=== PATIENT | female | born 1995 | race Caucasian/White ===

== ENCOUNTER 2024-04-12 11:24 | Emergency (ER) | payer MEDICAID, SELFPAY ==
[2024-04-12 11:32] VITALS: BP 138/85; PULSE 95; RESP 16; TEMP 36.7; O2SAT 100
[2024-04-12 12:16] LABS: Basophils % 0.4 %; Eosinophils # 0.1 10^3/uL (0.0-0.8); Eosinophils % 0.8 %; Hematocrit 40.1 % (36-47); Lymphocytes # 2.3 10^3/uL (0.8-4.8); Lymphocytes % 22.3 %; Mean Corpuscular HGB Conc 32.9 g/dL (30-55); Mean Corpuscular Hemoglobin 28.4 pg (27-33); Mean Corpuscular Volume 86.4 fl (85-98); Mean Platelet Volume 11.5 fL (7.4-10.4); Monocytes # 0.8 10^3/uL (0.2-0.9); Monocytes % 7.7 %; Neutrophils # 7.09 10^3/uL (1.8-7.7); Neutrophils % 68.5 %; Nucleated Red Blood Cells % 0 %; Platelet Count 158 10^3/cmm (157-399); Red Blood Count 4.64 10^6/uL (3.85-5.65); Red Cell Distribution Width 13.1 % (12.1-15.1); White Blood Count 10.35 10^3/uL (3.29-11.43)
[2024-04-12 12:28] VITALS: BP 129/85; PULSE 97; O2SAT 100
--- NOTE | 2024-04-12 12:55 | ED_ITS ---
HPI - 2 General: Chief complaint: Vaginal Bleeding Stated complaint: 6 weeks preg, spotting and cramping Time Seen by Provider: 04/12/24 12:35 Source: patient Mode of arrival: ambulatory History of Present Illness: 28-year-old female presents emergency ro clinic vaginal bleeding and pelvic cramping that began this morning. She had a positive test at home went to the doctor's office and it confirmed and then began to have the bleeding and spotting and discomfort. She denies any dysuria urgency or frequency. States this is her first . MD Complaint: abdominal pain Onset (ago): day(s) Pain Consistency: intermittent Location: pelvis Quality: Cramping Radiation: pelvis Relieving factors: none Exacerbating factors: none Vaginal bleeding: light Associated symptoms: Reports vaginal bleeding; Deny abdominal pain, dyspareunia, dysuria, headache(s), malaise, nausea, rash, seizures, short of breath, syncope, vaginal discharge, visual changes, vomiting or weakness Related Data: : 1 Review of Systems 2 Const: Denies: fever(s), chills, fatigue or malaise Card: Denies: syncope Resp: Denies: dyspnea GI: Denies: abdominal pain, nausea or vomiting : Reports: vaginal bleeding; Denies: dysuria, vaginal discharge or dyspareunia Musc: Denies: neck pain or back pain Skin/Breast: Denies: rash Neuro: Denies: headache(s) PFSH ED 2 PFSH: Medical History 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, 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 GERD (gastroesophageal reflux disease) Meningitis Surgical History History of heart artery stent Social History Smoking and tobacco/nicotine status: never used tobacco/nicotine Female Reproductive History: : 1 Physical Exam 2 Const: COMMON NORMALS: no acute distress GENERAL APPEARANCE: cooperative and comfortable ORIENTATION/CONSCIOUSNESS: Yes awake, Yes oriented to person, Yes oriented to place and Yes oriented to time HENMT: COMMON NORMALS: normocephalic, atraumatic and hearing grossly normal bilaterally HEAD & SCALP: normocephalic and atraumatic Resp: COMMON NORMALS: normal respiratory effort, No retractions, No use of accessory muscles and clear to auscultation bilaterally AUSCULTATION: clear to auscultation bilaterally Cardio: COMMON NORMALS: regular rate, regular rhythm and No murmurs present (Cardio) RATE: regular rate RHYTHM: regular rhythm GI: COMMON NORMALS: Soft to palpation and No hepatosplenomegaly present A USCULTATION: Yes normoactive bowel sounds PALPATION: Yes Soft to palpation, No Tenderness to palpation present (GI), No Guarding due to palpation present (GI) and Yes No hepatosplenomegaly present : SPECULUM EXAM - VAGINA: Yes vaginal bleeding OB/EXTERNAL & SPECULUM: v aginal bleeding Extremity: COMMON NORMALS: normal to inspection, capillary refill normal, no clubbing, cyanosis or edema, no calf tenderness and no pedal edema Neuro: SENSORIUM/ORIENTATION: Yes oriented to person, Yes oriented to place and Yes oriented to time Skin: COMMON NORMALS: no rashes or lesions noted GENERAL SKIN EXAM: no rashes or lesions noted Course 2 Vital Signs: Vital signs: Vital Signs Temperature 98.0 F 04/12/24 15:19 Pulse Rate 89 04/12/24 15:19 Respiratory Rate 16 04/12/24 15:19 Blood Pressure 139/72 04/12/24 15:19 Pulse Oximetry 100 04/12/24 15:19 Oxygen Delivery Me thod Room Air 04/12/24 14:49 MDM - OB/Uterine Contractions Medical Decision Making Urine shows large amount red blood cells. She is not having any dysuria urgency or frequency. She also has a large squamous cells. Beta-hCG is a little over 600. Will discharge the patient home and should have a repeat beta-hCG in the next 3 to 5 days. If has any worsening or change symptoms or worsening pain return to the emergency room. Medical Records I reviewed the patient's medical records. Lab Data I reviewed the patient's lab results. 04/12/24 12:07 Radiology Impressions Transvaginal US 04/12/24 14:03 IMPRESSION: Normal duplex of the ovaries. No evidence of ovarian torsion. IMPRESSION: Somewhat thickened heterogeneous endometrium. Suspect a complex small cyst in the left ovary possibly representing a hemorrhagic cyst. Laboratory Results WBC 10.35 10^3/uL (3.29-11.43) 04/12/24 12:07 RBC 4.64 10^6/uL (3.85-5.65) 04/12/24 12:07 Hgb 13.20 g/dL (11.27-16.99) 04/12/24 12:07 Hct 40.1 % (36-47) 04/12/24 12:07 MCV 86.4 fl (85-98) 04/12/24 12:07 MCH 28.4 pg (27-33) 04/12/24 12:07 MCHC 32.9 g/dL (30-55) 04/12/24 12:07 RDW 13.1 % (12.1-15.1) 04/12/24 12:07 Plt Count 158 10^3/cmm (157-399) 04/12/24 12:07 MPV 11.5 fL (7.4-10.4) H 04/12/24 12:07 Neut % (Auto) 68.5 % 04/12/24 12:07 Lymph % (Auto) 22.3 % 04/12/24 12:07 [place] % (Auto) 7.7 % 04/12/24 12:07 Eos % (Auto) 0.8 % 04/12/24 12:07 Baso % (Auto) 0.4 % 04/12/24 12:07 Neut # (Auto) 7.09 10^3/uL (1.8-7.7) 04/12/24 12:07 Lymph # (Auto) 2.3 10^3/uL (0.8-4.8) 04/12/24 12:07 [place] # (Auto) 0.8 10^3/uL (0.2-0.9) 04/12/24 12:07 Eos # (Auto) 0.1 10^3/uL (0.0-0.8) 04/12/24 12:07 Baso # (Auto) 0.0 10^3/uL (0.0-0.1) 04/12/24 12:07 Nucleated RBC % (auto) 0 % 04/12/24 12:07 Nucleated RBCs # 0.0 /100WBC 04/12/24 12:07 Ser , Semi-Qnt 614.00 mIU/mL 04/12/24 12:07 Urine Color Dark yellow (Yellow) A 04/12/24 12:02 Urine Appearance Cloudy (CLEAR) A 04/12/24 12:02 Urine pH 6 (5-7) 04/12/24 12:02 Ur Specific [place] 1.020 (1.005-1.030) 04/12/24 12:02 Urine Protein 2+ (Negative) H 04/12/24 12:02 Urine Glucose (UA) Norm (Normal) 04/12/24 12:02 Urine Ketones 2+ (Negative) H 04/12/24 12:02 Urine Blood 3+ (Negative) H 04/12/24 12:02 Urine Nitrate Negative (Negative) 04/12/24 12:02 Urine Bilirubin 1+ (Negative) H 04/12/24 12:02 Urine Urobilinogen 4 mg/dL (Negative) H 04/12/24 12:02 Ur Leukocyte Esterase Trace (Negative) H 04/12/24 12:02 Urine RBC >100 /hpf (0-2) H 04/12/24 12:02 Urine WBC 25-40 /hpf (0-5) H 04/12/24 12:02 Ur Squamous Epith Cells 5-10 /hpf (0-5) H 04/12/24 12:02 Calcium Oxalate Crystal 15-25 /hpf H 04/12/24 12:02 Amorphous Sediment Not Reportable 04/12/24 12:02 Urine Bacteria 1+ /hpf (NONE) H 04/12/24 12:02 Urine Mucus 1+ /hpf 04/12/24 12:02 Blood Type O Negative 04/12/24 12:07 Rho(D) Type Rh negative 04/12/24 12:07 All radiology interpretation(s) finalized by discharge Discharge Plan Discharge Patient Disposition: Home Clinical Impression: Vaginal bleeding, First trimester Condition: Stable Prescriptions: No Action 28 mg iron- 800 mcg Tablet 1 tab PO DAILY Discharge Orders: Discharge ED (Routine); Ordered 04/12/24 Ordered By: Berny Aviles Discharge Diet: Usual diet Discharge Activity: Increase activity as tolerated Patient Instructions: Opioid Safety, Pain Management Activity Restrictions/Additional Instructions: Thank you for choosing [facility] for your healthcare needs today. It is very important that you follow up as instructed or that you return to the Emergency Department should you have concerns or if your condition changes or worsens in any way. You were seen today for vaginal bleeding. The hormone of was at the lower end of normal for 6 weeks . This should be rechecked in 3 to 5 days at your primary care doctor's office. Coding Level of Care Code ED Scale Tester for Brandy Michaud
--- NOTE | 2024-04-12 14:03 | USR_ITS ---
PROCEDURE INFORMATION: Exam: US Duplex Artery or Vein of the Abdominal and/or Reproductive Organs, Limited Ovaries Exam date and time: 04/12/2024 2:29 PM Age: 28 years old Clinical indication: Screening exam; Routine US, uterus; Additional info: Vaginal bleeding/cramping TECHNIQUE: Imaging protocol: Real-time duplex ultrasound scan of the arterial or venous flow with lam scale, color Doppler flow and spectral waveform analysis with image documentation. Limited duplex exam focused on the ovaries. Duplex exam was performed to evaluate for torsion and other vascular conditions. COMPARISON: No relevant prior studies available. FINDINGS: Right ovary/adnexa: Normal arterial and venous Doppler waveforms. No evidence of ovarian torsion. Left ovary/adnexa: Normal arterial and venous Doppler waveforms. No evidence of ovarian torsion. PROCEDURE INFORMATION: Exam: US Pelvis, Transvaginal, Non-Obstetric Exam date and time: 04/12/2024 2:29 PM Age: 28 years old Clinical indication: Screening exam; Routine US, uterus; Additional info: Vaginal bleeding/cramping TECHNIQUE: Imaging protocol: Real-time transvaginal pelvic (non-obstetric) ultrasound with image documentation. Transvaginal imaging was used for better evaluation of the endometrium, adnexa, and/or cervix. COMPARISON: No relevant prior studies available. FINDINGS: Uterus: Uterus measures 6.4 x 3.9 x 3.2 cm. Endometrial stripe measures 7 mm. Endometrium appears heterogeneous which is nonspecific. No uterine mass is identified. The right ovary measures 2.0 x 1.1 x 1.9 cm. Right ovary/adnexa: See Uterus finding. Left ovary/adnexa: The left ovary measures 2.1 x 2.5 x 1.4 cm. There is a 1.2 x 1.4 x 1.1 cm hypoechoic mass which could represent a complex cyst but cannot exclude a solid mass. It is avascular suggesting that it is cystic. Urinary bladder: Not visualized. Intraperitoneal space: No free fluid. US/US transvaginal [id number] IMPRESSION: Normal duplex of the ovaries. No evidence of ovarian torsion. IMPRESSION: Somewhat thickened heterogeneous endometrium. Suspect a complex small cyst in the left ovary possibly representing a hemorrhagic cyst.
[2024-04-12 14:49] VITALS: BP 139/72; PULSE 89; O2SAT 100
[2024-04-12 15:19] VITALS: BP 139/72; PULSE 89; RESP 16; TEMP 36.7; O2SAT 100
[2024-04-12 15:48] LABS: Add Urine Microscopic? YES; Bilirubin Urine 1+ (Negative); Blood Urine 3+ (Negative); Glucose Urine UA Norm (Normal); Ketones Urine 2+ (Negative); Leukocyte Esterase Urine Trace (Negative); Nitrate Urine Negative (Negative); Protein Urine 2+ (Negative); Urine Appearance Cloudy (CLEAR); Urine Color Dark Yellow (Yellow); Urobilinogen Urine 4 mg/dL (Negative); pH Urine 6 (5-7)
[2024-04-12 15:49] LABS: RBC Urine >100 /hpf (0-2)
[2024-04-12 15:50] LABS: Add Urine Culture? Yes; Bacteria Urine 1+ /hpf; Calcium Oxalate Crystals Urine 15-25 /hpf; Mucus Urine 1+ /hpf; WBC Urine 25-40 /hpf (0-5)
== END 2024-04-12 15:19 | disposition home or self-care (01) ==
PROVIDERS: Emergency Medicine; Emergency Provider Family Medicine
DX: O03.9 Complete or unspecified spontaneous abortion without complication (principal)
CPT/HCPCS: 36415; 76830; 81001; 84702; 85025; 86900; 87086; 96372; 99285

== ENCOUNTER 2024-04-12 19:27 | Emergency (ER) | payer MEDICAID, SELFPAY ==
--- NOTE | 2024-04-12 19:39 | W.ED.GENADLT ---
HPI - General Adult General: Chief complaint: Recheck/Abnormal Lab/Rx Stated complaint: RHOGAM SHOT Time Seen by Provider: 04/12/24 19:37 History of Present Illness: Patient had a miscarriage. It was missed that patient did not get her RhoGAM injection. Patient come back to receive the injection. Patient denies any complaints or significant bleeding at this time. 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 GERD (gastroesophageal reflux disease) Meningitis Surgical History History of heart artery stent Social History Smoking and tobacco/nicotine status: never used tobacco/nicotine Physical Exam Const: COMMON NORMALS: alert HENMT: COMMON NORMALS: normocephalic HEAD & SCALP: normocephalic Neck/C-Spine: COMMON NORMALS: full ROM Resp: COMMON NORMALS: normal respiratory effort Cardio: COMMON NORMALS: regular rate RATE: regular rate Back/Pelvis: COMMON NORMALS: thoracic and lumbar spine normal to inspection Extremity: COMMON NORMALS: full ROM Neuro: SENSORIUM/ORIENTATION: Yes alert Skin: COMMON NORMALS: turgor normal GENERAL SKIN EXAM: turgor normal Course Vital Signs: Vital signs: Vital Signs Pulse Rate 81 04/12/24 19:59 Blood Pressure 138/98 04/12/24 19:59 Pulse Oximetry 100 04/12/24 19:59 Oxygen Delivery Me thod Room Air 04/12/24 19:59 MDM - General Adult Medical Decision Making 28-year-old female comes in today for complaints of miscarriage and need for RhoGAM injection. Patient denies any significant bleeding. Patient appears nontoxic. Patient appears no acute distress. Differential diagnosis is need for RhoGAM, threatened miscarriage, spontaneous . RhoGAM was given and patient was discharged home. Lab Data Laboratory Results Blood Type O Negative 04/12/24 19:54 Rho(D) Type Rh negative 04/12/24 19:54 Antibody Screen Negative 04/12/24 19:54 No radiology studies performed this visit Discharge Plan Discharge Patient Disposition: Home Clinical Impression: Need for rhogam due to Rh negative mother Condition: Stable Prescriptions: No Action 28 mg iron- 800 mcg Tablet 1 tab PO DAILY Discharge Orders: Discharge ED (Routine); Ordered 04/12/24 Ordered By: [place] Discharge Diet: Advance as tolerated Discharge Activity: Resume usual activity Patient Instructions: Rh (By injection) (HyperRHO S/D, MICRhoGAM Ultra-Filtered Plus,... Activity Restrictions/Additional Instructions: Follow-up with BIS[employer] WORKER for further instructions. Return to ER for high fever or bleeding through 1 pad or more an hour. Coding Level of Care Code ED Telecom Coordinator for Brandy Michaud
[2024-04-12 19:49] VITALS: BP 138/98; PULSE 84; O2SAT 100; BMI 25.2
[2024-04-12 19:59] VITALS: BP 138/98; PULSE 81; O2SAT 100
[2024-04-12 21:29] VITALS: PULSE 91; RESP 14; O2SAT 100
[2024-04-12 21:51] VITALS: BP 135/85; PULSE 89; TEMP 36.8; O2SAT 100
== END 2024-04-12 21:53 | disposition home or self-care (01) ==
PROVIDERS: Emergency Provider Nurse Practitioner Family
DX: Z29.13 Encounter for prophylactic Rho(D) immune globulin (principal); Z85.6 Personal history of leukemia; Z92.21 Personal history of antineoplastic chemotherapy
CPT/HCPCS: 36415; 86850; 86900; 90384; 99283

== ENCOUNTER 2024-04-19 09:10 | Outpatient (CLI) | payer MEDICAID, SELFPAY ==
[2024-04-19 09:28] LABS: Basophils % 0.3 %; Eosinophils # 0.1 10^3/uL (0.0-0.8); Eosinophils % 1.1 %; Hematocrit 38.8 % (36-47); Lymphocytes # 1.9 10^3/uL (0.8-4.8); Mean Corpuscular HGB Conc 32.7 g/dL (30-55); Mean Corpuscular Hemoglobin 28.5 pg (27-33); Mean Platelet Volume 11.2 fL (7.4-10.4); Monocytes # 0.6 10^3/uL (0.2-0.9); Monocytes % 8.4 %; Neutrophils # 4.87 10^3/uL (1.8-7.7); Neutrophils % 64.9 %; Nucleated Red Blood Cells % 0 %; Platelet Count 146 10^3/cmm (157-399); Red Blood Count 4.46 10^6/uL (3.85-5.65); Red Cell Distribution Width 13.1 % (12.1-15.1); White Blood Count 7.49 10^3/uL (3.29-11.43)
[2024-04-19 09:51] LABS: HCG Quantitative 28.72 mIU/mL; Thyroid Stimulating Hormone 4.02 uIU/mL (0.27-4.20)
== END 2024-04-19 09:11 | disposition home or self-care (01) ==
LOC: LAB 09:12
PROVIDERS: PCP Nurse Practitioner Women's Health; Visit Provider Nurse Practitioner Women's Health
DX: O20.0 Threatened abortion (principal); N92.6 Irregular menstruation, unspecified
CPT/HCPCS: 36415; 81025; 84443; 84702; 85025; 87491; 87591

== ENCOUNTER 2024-05-03 09:10 | Outpatient (CLI) | payer MEDICAID, SELFPAY ==
[2024-05-03 10:03] LABS: Free T4 Free Thyroxine 1.26 ng/dL (0.82-1.77); T3 Free 3.2 PG/ML (2.0-4.4); Thyroid Stimulating Hormone 4.88 uIU/mL (0.27-4.20)
== END 2024-05-03 09:11 | disposition home or self-care (01) ==
LOC: LAB 09:12
PROVIDERS: PCP Nurse Practitioner Women's Health; Visit Provider Nurse Practitioner Women's Health
DX: O03.4 Incomplete spontaneous abortion without complication (principal)
CPT/HCPCS: 36415; 84439; 84443; 84481; 84702

== ENCOUNTER 2024-06-14 13:25 | Outpatient (CLI) | payer MEDICAID, SELFPAY ==
[2024-06-14 14:30] LABS: Thyroid Stimulating Hormone 2.48 uIU/mL (0.27-4.20)
== END 2024-06-14 13:26 | disposition home or self-care (01) ==
LOC: LAB 13:26
PROVIDERS: PCP Nurse Practitioner Women's Health; Visit Provider Nurse Practitioner Women's Health
DX: E03.9 Hypothyroidism, unspecified (principal)
CPT/HCPCS: 36415; 84443

== ENCOUNTER → 2024-07-11 15:45 | Outpatient (BNVA) | payer MEDICAID, SELFPAY | PROVIDERS: PCP Nurse Practitioner Women's Health; Visit Provider Nurse Practitioner Women's Health | DX: Z32.01 Encounter for pregnancy test, result positive (principal) | CPT/HCPCS: 84702 ==

== ENCOUNTER → 2024-07-13 09:16 | Outpatient (BNVA) | payer MEDICAID, SELFPAY | PROVIDERS: PCP Nurse Practitioner Women's Health; Visit Provider Nurse Practitioner Women's Health | DX: Z78.9 Other specified health status (principal) | CPT/HCPCS: 84702 ==

== ENCOUNTER → 2024-07-20 09:44 | Outpatient (BNVA) | payer MEDICAID, SELFPAY | PROVIDERS: PCP Nurse Practitioner Women's Health; Visit Provider Nurse Practitioner Women's Health | DX: N91.2 Amenorrhea, unspecified (principal) | CPT/HCPCS: 81025 ==

== ENCOUNTER → 2024-08-01 07:53 | Outpatient (BNVA) | payer MEDICAID, SELFPAY | PROVIDERS: PCP Nurse Practitioner Women's Health; Visit Provider Nurse Practitioner Women's Health | DX: Z36.87 Encounter for antenatal screening for uncertain dates (principal); Z3A.01 Less than 8 weeks gestation of pregnancy | CPT/HCPCS: 76817 ==

== ENCOUNTER → 2024-08-03 12:51 | Outpatient (BNVA) | payer MEDICAID, SELFPAY | PROVIDERS: PCP Nurse Practitioner Women's Health; Visit Provider Nurse Practitioner Women's Health | DX: O36.80X0 Pregnancy with inconclusive fetal viability, not applicable or unspecified (principal) | CPT/HCPCS: 84702 ==

== ENCOUNTER → 2024-08-10 11:35 | Outpatient (BNVA) | payer MEDICAID, SELFPAY | PROVIDERS: PCP Nurse Practitioner Women's Health; Visit Provider Nurse Practitioner Women's Health | DX: O36.80X0 Pregnancy with inconclusive fetal viability, not applicable or unspecified (principal); N85.8 Other specified noninflammatory disorders of uterus; Z3A.01 Less than 8 weeks gestation of pregnancy | CPT/HCPCS: 76817 ==

== ENCOUNTER → 2024-08-11 14:53 | Outpatient (BNVA) | payer MEDICAID, SELFPAY | PROVIDERS: PCP Nurse Practitioner Women's Health; Visit Provider Nurse Practitioner Women's Health | DX: O02.1 Missed abortion (principal) | CPT/HCPCS: 81000; 84702; 85025 ==

== ENCOUNTER 2024-08-15 12:36 | Day surgery (SDC) | payer MEDICAID, SELFPAY ==
[2024-08-15] VITALS (13 sets, daily range): BP systolic 103–128; BP diastolic 66–85; PULSE 77–126; RESP 16–18; TEMP 36.2–37.2; O2SAT 97–100; BMI 27.0
[2024-08-15] MEDS: scopolamine 1.5 Patch 1 PATCH TRANSDERMA (13:00)
[2024-08-15] MEDS: sodium chloride 0.9% 500 ML IV (13:00)
--- NOTE | 2024-08-15 13:01 | W.PM.OPSUD ---
Surgery/Procedure H&P Update DATE OF PROCEDURE: August 15, 2024 DATE H&P PERFORMED: 08/11/24 H&P UPDATE INFORMATION: I have reviewed H&P completed within last 30 days, I have examined patient prior to procedure and No changes to prior documentation PREOP DIAGNOSIS: Missed miscarriage/ PLANNED PROCEDURE: Operation Date: 08/15/24 16:35 Proposed Procedures p Dilation And Curettage (D&C)(Not Applicable) - Rene Flores MD
--- NOTE | 2024-08-15 13:58 | ANES.PREANE2 ---
Pre-Anesthetic Assessment Height/Weight: Height 4 ft 11 in Preop Diagnosis: Missed miscarriage/ Operation Date: 08/15/24 16:35 Proposed Procedures p Dilation And Curettage (D&C)(Not Applicable) - Rene Flores MD Was Beta Maurice taken within 24 hours: N/A Was Clonidine taken within 24 hours: N/A Social No alcohol and No tobacco Exam alert, oriented x 3, clear to auscultation bilaterally and regular rate & rhythm Airway Submandibular: within normal limits Cervical ROM: within normal limits Mallampati: Class I Dentition: full Anesthetic Plan ASA status: 2 Anesthesia: General Other: No prior issues with anesthesia NPO since yesterday Patient is approximately 8 weeks in gestation, spontaneous Hypothyroidism on Synthroid Patient had a hole in her heart repaired at 17 years of age. Does not follow with cardiology METs greater than 4 Labs 08/11/2024 reviewed acceptable for procedure. 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
[2024-08-15] MEDS: ceFAZolin 2,000 mg SDV 2000 MG IVP (14:12)
[2024-08-15] MEDS: lidocaine-epi 2% PF 1:200,000 20 mL SDV 10 ML XX (14:43)
--- NOTE | 2024-08-15 14:47 | PM.OP ---
Operative Report Date of procedure: August 15, 2024 Pre-op diagnosis: Missed AB Post-op diagnosis: same Procedure done: Suction dilation and curettage Specimens removed/disposition: Products of conception, endometrial curettings Surgeon: Rene Flores MD Estimated blood loss (mL): 20 IV fluids (mL): 200 Procedure: After informed consent, the patient was taken to the Operating Room where general anesthesia was administered. The patient was examined under anesthesia and found to have a normal uterus with normal adnexa. She was placed in the dorsal lithotomy position and prepped and draped in sterile fashion. A sterile weighted speculum was placed in the patient's vagina. A single-tooth tenaculum was then applied to the cervix. The uterus was then gently sounded to 8 cm and a suction curette was advanced gently to the uterine fundus and product of conception emptied. A sharp curettage was then performed until a gritty texture was noted. There was minimal bleeding noted and the tenaculum was removed with good hemostasis noted. The patient tolerated the procedure well. The patient was taken to the recovery area in stable condition.
[2024-08-15] MEDS: fentaNYL 50 mcg/mL INJ 2mL IVP (14:59)
[2024-08-15 15:19] LABS: Basophils % 0.4 %; Eosinophils # 0.1 10^3/uL (0.0-0.8); Eosinophils % 0.7 %; Hematocrit 39.4 % (36-47); Lymphocytes % 24.5 %; Mean Corpuscular HGB Conc 32.5 g/dL (30-55); Mean Corpuscular Hemoglobin 27.9 pg (27-33); Mean Platelet Volume 11.7 fL (7.4-10.4); Monocytes # 0.7 10^3/uL (0.2-0.9); Nucleated Red Blood Cells % 0 %; Platelet Count 189 10^3/cmm (157-399); Red Blood Count 4.58 10^6/uL (3.85-5.65); Red Cell Distribution Width 12.6 % (12.1-15.1); White Blood Count 8.15 10^3/uL (3.29-11.43)
[2024-08-15 15:32] LABS: Albumin Level 3.9 g/dL (3.5-5.2); Alkaline Phosphatase 79 U/L (35-105); Blood Urea Nitrogen 11 mg/dL (6-20); Calcium 8.3 mg/dL (8.5-10.5); Carbon Dioxide 18 mmol/L (22-29); Chloride 104 mmol/L (98-107); Creatinine Clr Calc Pharmacy 133.9433; Globulin 3.1 g/dL (1.3-4.6); Glucose 72 mg/dL (65-115); Osmolality Calculated 278 mOsm/kg (285-295); Sodium 135 mmol/L (136-145); Total Bilirubin 0.4 mg/dL (0.15-1.2)
[2024-08-15 15:38] LABS: Alanine Aminotransferase 9 U/L (0-33); Aspartate Amino Transferase 18 U/L (0-32)
--- NOTE | 2024-08-15 17:04 | PC.NURSE ---
report called to Dr. Bansal regarding pt's condition. Per pt ok to discharge.
--- NOTE | 2024-08-15 17:07 | ANE.PACU2 ---
Inpatient post-anesthesia follow up: Airway intact: Yes Vital signs: Temperature 98.4 F Pulse Rate 96 Respiratory Rate 16 Blood Pressure 107/71 Pulse Oximetry 100 Oxygen Delivery Me thod Room Air Oxygen Flow Rate Fraction of Inspir ed Oxygen Hydration adequate: Yes Nausea and vomiting: No Pain level: 1 Mental status: Baseline
== END 2024-08-15 17:08 | disposition home or self-care (01) ==
PROVIDERS: PCP Nurse Practitioner Women's Health; Visit Provider Obstetrics & Gynecology
PROC: (CPT 59820; principal; 2024-08-15 16:25)
DX: O02.1 Missed abortion (principal); E03.9 Hypothyroidism, unspecified; K21.9 Gastro-esophageal reflux disease without esophagitis; Z95.5 Presence of coronary angioplasty implant and graft
CPT/HCPCS: 59820; 36415; 80053; 85025; 86850; 86900; 88305; J0690; J1100; J1885; J2250; J2405; J2704; J3010; J7030; J7040

== ENCOUNTER → 2024-09-06 13:33 | Outpatient (BNVA) | payer MEDICAID, SELFPAY | PROVIDERS: PCP Nurse Practitioner Women's Health; Visit Provider Nurse Practitioner Women's Health | DX: E03.9 Hypothyroidism, unspecified (principal); O03.4 Incomplete spontaneous abortion without complication | CPT/HCPCS: 84443; 84702 ==

== ENCOUNTER 2024-09-08 12:41 | Outpatient (CLI) | payer MEDICAID, SELFPAY | END 2024-09-08 12:42 | disposition home or self-care (01) | LOC: LAB 12:42 | PROVIDERS: PCP Nurse Practitioner Women's Health; Visit Provider Nurse Practitioner Women's Health | DX: O03.4 Incomplete spontaneous abortion without complication (principal) | CPT/HCPCS: 36415; 84702 ==

== ENCOUNTER 2024-09-11 08:54 | Outpatient (CLI) | payer MEDICAID, SELFPAY | END 2024-09-11 08:55 | disposition home or self-care (01) | LOC: LAB 08:56 | PROVIDERS: PCP Nurse Practitioner Women's Health; Visit Provider Nurse Practitioner Women's Health | DX: O03.4 Incomplete spontaneous abortion without complication (principal) | CPT/HCPCS: 36415; 76817; 84702 ==